=== PATIENT | female | born 2005 | race Two or more races ===

== ENCOUNTER 2024-07-25 17:54 | Emergency (ER) | payer OTHER ==
[~2024-07-25] VITALS: Ht 160 cm; Wt 56.2 kg
[2024-07-25 18:27] VITALS: BP 108/57; O2SAT 100
[2024-07-25] MEDS ORDERED: PRENATA CHEWAB1 EACH (18:29)
[2024-07-25 20:22] LABS: HEMATOCRIT 37.2 % (36.0-45.00); HEMOGLOBIN 12.5 g/dL (12.0-15.00); MEAN CELL VOLUME 82.3 fL (80.00-100.00); MEAN CORPUSCULAR HEMOGLOBIN 27.7 pg (27.00-32.0); MEAN CORPUSCULAR HGB CONC 33.6 g/dl (32.0-36.0); PLATELET COUNT 272 K/uL (150-450); RED BLOOD COUNT 4.52 M/uL (4.00-6.00); RED CELL DISTRIBUTION WIDTH 14.8 % (11.5-14.5)
[2024-07-25 21:09] LABS: PH,URINE 5.5 (5.0-8.0); URINE APPEARANCE Cloudy; URINE BILIRRUBIN Negative (NEGATIVE); URINE BLOOD Large; URINE COLOR Yellow; URINE GLUCOSE Negative (NEGATIVE); URINE KETONE Negative (NEGATIVE); URINE LEUKOCYTE Moderate; URINE NITRATE Negative; URINE PROTEIN 30 (NEGATIVE); URINE UROBILINOGEN 0.2 E.U./dl
[2024-07-25 21:10] LABS: URINE BACTERIA 286.4 uL (0.0-1933); URINE RBC 853.3 uL (0.0-20.8); URINE WBC 1129.3 uL (0.0-23.2)
[2024-07-25 21:13] LABS: URINE CAST 0.14 uL (0.0-1.40)
[2024-07-25 21:20] LABS: ALBUMIN 3.9 gm/dL (3.4-5.0); BILIRUBIN TOTAL 0.3 mg/dL (0.3-1.2); CREATININE SERUM 0.71 mg/dL (0.55-1.02); GFR 103.91; GLOBULINA 3.1 G/DL (2.4-3.5); POTASSIUM 3.76 mEq/L (3.5-5.1)
[2024-07-25] MEDS ORDERED: CEPHALEXIN500 M1 PO (22:03)
[2024-07-25] MEDS ORDERED: CEFTRIAXONE SODIUM 1,000 MG VIAL ONE (22:11)
[2024-07-25] MEDS ORDERED: LIDOCAINE HCL 1% 10ML VIAL ONE (22:12)
[2024-07-25] MEDS ORDERED: CEFTRIAXONE SODIUM 1,000 MG VIAL IM ONE (22:15)
== END 2024-07-25 22:22 | disposition home or self-care (01) ==
LOC: ER 17:56
PROVIDERS: General Practice
DX: O23.40 Unspecified infection of urinary tract in pregnancy, unspecified trimester (principal); Z3A.09 9 weeks gestation of pregnancy; Z88.0 Allergy status to penicillin

== ENCOUNTER 2024-09-22 10:33 | Outpatient (CLI) | payer OTHER ==
[~2024-09-22 10:33] MED LIST: CEPHALEXIN500 M1 PO; PRENATA CHEWAB1 EACH
== END 2024-09-22 10:34 | disposition home or self-care (01) ==
LOC: PRENATAL 10:33
PROVIDERS: ATTEND Obstetrics & Gynecology Maternal & Fetal Medicine
DX: O26.849 Uterine size-date discrepancy, unspecified trimester (principal); O28.5 Abnormal chromosomal and genetic finding on antenatal screening of mother; Z3A.17 17 weeks gestation of pregnancy

== ENCOUNTER 2024-09-22 10:49 | Outpatient (CLI) | payer OTHER | END 2024-09-22 10:52 | disposition home or self-care (01) | LOC: LAB 10:49 | PROVIDERS: ATTEND Obstetrics & Gynecology Maternal & Fetal Medicine | DX: O28.5 Abnormal chromosomal and genetic finding on antenatal screening of mother (principal); O28.3 Abnormal ultrasonic finding on antenatal screening of mother ==

== ENCOUNTER → 2024-10-15 09:07 | Outpatient (CLI) | payer OTHER | END | disposition home or self-care (01) | LOC: PRENATAL 09:07 | PROVIDERS: ATTEND Obstetrics & Gynecology Maternal & Fetal Medicine | DX: O44.00 Complete placenta previa NOS or without hemorrhage, unspecified trimester (principal); O28.5 Abnormal chromosomal and genetic finding on antenatal screening of mother; Z3A.20 20 weeks gestation of pregnancy ==

== ENCOUNTER → 2025-01-07 14:42 | Outpatient (CLI) | payer OTHER | END | disposition home or self-care (01) | LOC: PRENATAL 14:42 | PROVIDERS: ATTEND Obstetrics & Gynecology Maternal & Fetal Medicine | DX: O26.849 Uterine size-date discrepancy, unspecified trimester (principal); O36.8130 Decreased fetal movements, third trimester, not applicable or unspecified; O28.5 Abnormal chromosomal and genetic finding on antenatal screening of mother; O32.9XX0 Maternal care for malpresentation of fetus, unspecified, not applicable or unspecified ==

== ENCOUNTER 2025-01-29 09:42 | Outpatient (CLI) | payer OTHER ==
[~2025-01-29] VITALS: Ht 160 cm; Wt 74.8 kg
[2025-01-29 08:45] VITALS: BP 120/71
[~2025-01-29 09:42] MED LIST changes: +PEPCID AC20 MG PO
[2025-01-29] MEDS ORDERED: RINGERS SOLUTION,LACTATED 1,000 ML IV SCH (10:30)
[2025-01-29 11:18] LABS: BASO % 0.4 % (0.1-1.2); EOS # 0.18 (0.04-0.54); EOS % 1.7 % (0.7-7.0); LYMPH # 1.27 (1.18-3.74); LYMPH % 11.8 % (19.3-53.1); MEAN PLATELET VOLUME 9.70 fl (9.4-12.4); MONO # 1.09 (0.24-0.82); MONO % 10.2 % (4.7-12.5); NEUT # 8.02 (1.56-6.13); NEUT % 74.8 % (34.0-71.1); RED CELL DISTRIBUTION WIDTH 13.2 % (11.6-14.4)
[2025-01-29 11:31] VITALS: BP 114/67
[2025-01-29 11:38] LABS: INR 0.94
[2025-01-29 11:53] LABS: ALT/SGPT 22.0 U/L (12-78); AST/SGOT 24.0 U/L (15-37); BILIRUBIN TOTAL 0.19 mg/dL (0.3-1.2); BUN CREA RATIO 15.0 (7.0-25.0); CREATININE SERUM 0.59 mg/dL (0.55-1.02); GFR 128.67; GLOBULINA 3.3 G/DL (2.4-3.5); GLUCOSE FASTING 80.0 mg/dL (65-100); OSMOLALITY SERUM 279.0 MOSM/KG (275-295)
[2025-01-29 15:25] VITALS: BP 123/62
[2025-01-29] MEDS ORDERED: BETAMETHASONE ACETATE,SOD PHOS 30 MG/5 ML ML IM SCH (15:30)
[2025-01-29 19:54] VITALS: BP 138/75
[2025-01-29 23:17] VITALS: BP 119/65; O2SAT 99
[2025-01-30 03:38] VITALS: BP 117/60
[2025-01-30 07:25] VITALS: BP 112/63
[2025-01-30 11:55] VITALS: BP 128/70
== END 2025-01-30 11:55 | disposition home or self-care (01) ==
LOC: OBS/DEL 09:42
PROVIDERS: General Practice; ATTEND Student in an Organized Health Care Education/Training Program
DX: O36.8130 Decreased fetal movements, third trimester, not applicable or unspecified (principal); O26.849 Uterine size-date discrepancy, unspecified trimester; O28.5 Abnormal chromosomal and genetic finding on antenatal screening of mother; O32.9XX0 Maternal care for malpresentation of fetus, unspecified, not applicable or unspecified; Z3A.36 36 weeks gestation of pregnancy

== ENCOUNTER 2025-02-09 11:08 | Inpatient (IN) | payer OTHER ==
[~2025-02-09] VITALS: Ht 160 cm; Wt 2.7 kg
[2025-02-09 11:25] VITALS: BP 139/75
[2025-02-09 11:55] LABS: BASO % 0.2 % (0.1-1.2); EOS # 0.13 (0.04-0.54); EOS % 1.2 % (0.7-7.0); LYMPH # 1.52 (1.18-3.74); LYMPH % 13.5 % (19.3-53.1); MEAN PLATELET VOLUME 10.00 fl (9.4-12.4); MONO # 1.02 (0.24-0.82); MONO % 9.1 % (4.7-12.5); NEUT # 8.37 (1.56-6.13); NEUT % 74.5 % (34.0-71.1); RED CELL DISTRIBUTION WIDTH 13.3 % (11.6-14.4)
[2025-02-09 11:57] LABS: URINE APPEARANCE Clear; URINE BILIRRUBIN Negative (NEGATIVE); URINE BLOOD Trace; URINE COLOR Yellow; URINE GLUCOSE Negative (NEGATIVE); URINE KETONE Negative (NEGATIVE); URINE LEUKOCYTE Negative; URINE NITRATE Negative; URINE PROTEIN Negative (NEGATIVE); URINE UROBILINOGEN 0.2 E.U./dl
[2025-02-09 11:58] LABS: URINE BACTERIA 398.4 uL (0.0-1933); URINE EPITHELIAL CELLS 4.9 uL (0.0-38.8); URINE WBC 3.6 uL (0.0-23.2)
[2025-02-09] MEDS ORDERED: RINGERS SOLUTION,LACTATED 1,000 ML IV SCH (12:00)
[2025-02-09 12:06] LABS: URINE CAST 0.00 uL (0.0-1.40); URINE RBC 1.6 uL (0.0-20.8)
[2025-02-09 12:19] LABS: INR < 0.93
[2025-02-09 12:29] LABS: ALT/SGPT 20.0 U/L (12-78); AST/SGOT 18.0 U/L (15-37); BILIRUBIN TOTAL 0.22 mg/dL (0.3-1.2); BUN CREA RATIO 23.0 (7.0-25.0); CREATININE SERUM 0.57 mg/dL (0.55-1.02); GFR 133.89; GLOBULINA 3.2 G/DL (2.4-3.5); GLUCOSE FASTING 106.0 mg/dL (65-100); OSMOLALITY SERUM 282.0 MOSM/KG (275-295)
[2025-02-09 15:26] VITALS: BP 137/57
[2025-02-09 16:00] VITALS: BP 127/43
[2025-02-09 17:25] VITALS: BP 131/53
[2025-02-09 20:15] VITALS: BP 144/54
[2025-02-09 23:23] VITALS: BP 118/67; O2SAT 99
[2025-02-10 03:28] VITALS: BP 108/61; O2SAT 98
[2025-02-10 06:54] VITALS: BP 127/72; O2SAT 100
[2025-02-10] MEDS ORDERED: MISOPROSTOL 25 MCG TABLET VAG ONE (08:30)
[2025-02-10 11:41] VITALS: BP 125/68
[2025-02-10] MEDS ORDERED: GENTAMICIN SULFATE 40 MG/ML VIAL IV ONE (13:15)
[2025-02-10] MEDS ORDERED: CLINDAMYCIN PHOSPHATE 150 MG/ML (900mg) IV ONE (13:15)
[2025-02-10 13:58] LABS: CREATININE URINE RANDOM 35.6 MG/DL (30-125)
[2025-02-10 15:00] VITALS: BP 126/67
[2025-02-10] MEDS ORDERED: GENTAMICIN SULFATE 40 MG/ML VIAL IV NR (16:00)
[2025-02-10] MEDS ORDERED: OXYTOCIN 1,000 ML IV SCH (16:45)
[2025-02-10] MEDS ORDERED: RINGERS SOLUTION,LACTATED 1,000 ML IV SCH (16:45)
[2025-02-10] MEDS ORDERED: OxyCODONE HCL 5 MG TABLET (ROXICODONE) PO PRN (16:45)
[2025-02-10] MEDS ORDERED: DOCUSATE SODIUM 100MG CAP PO SCH (17:00)
[2025-02-10 22:52] VITALS: BP 135/69
[2025-02-11 03:07] VITALS: BP 140/82
[2025-02-11 09:19] VITALS: BP 135/76
[2025-02-11 10:13] LABS: BASO % 0.3 % (0.1-1.2); EOS # 0.06 (0.04-0.54); EOS % 0.4 % (0.7-7.0); LYMPH # 1.15 (1.18-3.74); LYMPH % 8.2 % (19.3-53.1); MEAN PLATELET VOLUME 9.70 fl (9.4-12.4); MONO # 1.23 (0.24-0.82); MONO % 8.8 % (4.7-12.5); NEUT # 11.46 (1.56-6.13); NEUT % 81.8 % (34.0-71.1); RED CELL DISTRIBUTION WIDTH 13.4 % (11.6-14.4)
[2025-02-11 16:56] VITALS: BP 128/75
[2025-02-12 02:46] VITALS: BP 138/69
[2025-02-12 08:00] VITALS: BP 120/62
[2025-02-12] MEDS ORDERED: COLACE100 MG PO (14:20)
[2025-02-12] MEDS ORDERED: OXYCODONE HCL5 MG PO (14:20)
[2025-02-12] MEDS ORDERED: IBUPROFEN800 MG PO (14:20)
== END 2025-02-12 15:42 | disposition home or self-care (01) | DRG 788 ==
LOC: LDR 11:08 → OB/GYN 11:08 → LDR 17:40 → OB/GYN 02-10 18:11
PROVIDERS: Student in an Organized Health Care Education/Training Program; ADMIT General Practice; ATTEND General Practice
PROC: 4A1HXCZ Monitoring of Products of Conception, Cardiac Rate, External Approach (ICD-10-PCS; 2025-02-09)
PROC: 3E033VJ Introduction of Other Hormone into Peripheral Vein, Percutaneous Approach (ICD-10-PCS; 2025-02-10)
PROC: 3E0P7VZ Introduction of Hormone into Female Reproductive, Via Natural or Artificial Opening (ICD-10-PCS; 2025-02-10)
PROC: 10D00Z1 Extraction of Products of Conception, Low, Open Approach (ICD-10-PCS; principal; 2025-02-10 16:15)
DX: O32.1XX0 Maternal care for breech presentation, not applicable or unspecified (principal); O13.4 Gestational [pregnancy-induced] hypertension without significant proteinuria, complicating childbirth; O36.8330 Maternal care for abnormalities of the fetal heart rate or rhythm, third trimester, not applicable or unspecified; O76 Abnormality in fetal heart rate and rhythm complicating labor and delivery; Z3A.37 37 weeks gestation of pregnancy; Z37.0 Single live birth